=== PATIENT | female | born 1970 | race Caucasian/White ===

== ENCOUNTER → 2017-02-08 | Outpatient (CLI) | payer MEDICAID ==
[~2017-02-08] MED LIST: BACITRACIN15 G1 TP; COLACE-DPS100 MG PO; MILK OF MAGNESI10 ML PO; PERCOCET 5 DPS1 TAB PO; TYLENOL DPS325 MG PO; VALIUM-DPS5 MG PO
== END | disposition home or self-care (01) ==
LOC: PTH.S 08:35
DX: Z01.818 Encounter for other preprocedural examination (principal); M43.16 Spondylolisthesis, lumbar region; M48.06 Spinal stenosis, lumbar region; M54.17 Radiculopathy, lumbosacral region; F17.200 Nicotine dependence, unspecified, uncomplicated

== ENCOUNTER 2017-02-13 07:35 | Inpatient (IN) | payer MEDICAID ==
[~2017-02-13] VITALS: Ht 160 cm; Wt 88.8 kg
--- NOTE | ~2017-02-13 | DS ---
ADMIT: 02/13/2017 RM/LOC: [facility] MR#: [id number] [facility]#: [id number] [address] [facility] [address] [place], [place] [address] SOUMYA TOWNSEND [address] [place] [address] General Discharge Summary SEX: F AGE: 46 : 1970 ADMISSION DATE: 02/13/2017 DISCHARGE DATE: 02/16/2017 SERVICE: Neurosurgery. REASON FOR ADMISSION: 1. Low back pain. 2. Lumbar stenosis. 3. Lumbosacral radiculopathy. 4. Lumbar spondylolisthesis. PROCEDURE: Transforaminal lumbar interbody fusion at lumbar 5 through sacral 1. HOSPITAL COURSE: Ms. Townsend tolerated her procedure well. Postoperatively, she was taken to the Med/Surg floor for monitoring and care. Postop day #1, she was awake and alert. She was moving all extremities x4. Her vital signs were stable. Her incision was clean, dry, and intact. Her HEIDE drain was patent with serosanguineous drainage. Her On-Q was patent. She did work with Physical Therapy and Occupational Therapy and tolerated this quite well. Postop day #2, she was awake and alert. She was afebrile, and her vital signs were stable. She was moving all extremities x4. Her incision was clean, dry, and intact. Her On-Q was patent and was discontinued without difficulty. Her HEIDE drain was patent with serosanguineous drainage. It was discontinued without difficulty. She was complaining of back pain, but did state that her pain medications were helpful. She continued to work with Physical Therapy and Occupational Therapy. Postop day #3, she was awake and alert. She was afebrile, and her vital signs were stable. She was moving all extremities x4. Her incision was clean, dry, and intact and no hematoma or cerebrospinal fluid accumulation was noted. Her pain was well controlled. She was ambulating, urinating, and defecating per her norm and was requesting discharge home. DISCHARGE CONDITION: Good. MEDICATIONS: 1. Colace 100 mg p.o. b.i.d. 2. Milk of magnesia 10 mL p.o. q.a.m. p.r.n. 3. Bacitracin ointment to her incision q.p.m. x14 days. 4. Percocet 5/325 one to two p.o. q.4 hours p.r.n. 5. Tylenol 650 mg p.o. q.4 hours p.r.n. 6. Valium 5 mg one to two tablets p.o. q.8 hours p.r.n. DISCHARGE INSTRUCTIONS: Per Dr. Grimes, she can have a regular diet. She ADMIT: 02/13/2017 RM/LOC: [address] [facility] MR#: [id number] [address] [address] [place] [address] General Discharge Summary SEX: F AGE: 46 : 1970 may shower, she should not take any tub baths, she should pat her incision dry. She should not lift anything greater than 15 pounds. She should not take any NSAIDs. She should not drive until she is seen in clinic for followup. She will call with any questions or concerns including neurological worsening, signs and symptoms of infection, or any other issues. FOLLOWUP: She will follow up in clinic in 2 weeks with Alexia. DISPOSITION: She was discharged home. Total swqx-oh-zhoe time for the discharge planning and care coordination was 30 minutes. Alexia Walker APRN / Jose M Grimes MD / [place] JOB #: [id number] CC: Jose M Grimes MD, Attending Physician FAMILY PHYSICIAN, Family Physician
--- NOTE | 2017-02-15 07:38 | OR ---
ADMIT: 02/13/2017 RM/LOC: [address] [facility] MR#: [id number] [address] [facility] [address] [place], [place] [address] MATTHEW SOUMYA Sreekanth [address] [place] [address] Operative/Delivery Room Report SEX: F AGE: 46 : 1970 SURGERY DATE: 02/13/2017 SURGEON: Jose M Grimes MD PREOPERATIVE DIAGNOSIS: Spondylolisthesis lumbar 5, sacral 1 with radiculopathy bilaterally and severe stenosis. POSTOPERATIVE DIAGNOSIS: Spondylolisthesis lumbar 5, sacral 1 with radiculopathy bilaterally and severe stenosis. PROCEDURES: 1. Pineda-type wide laminectomy and facetectomy as advised necessary for decompression of thecal sac and nerve roots transiting at lumbar 5 sacral 1 level. 2. Confirmation of level with Dr. Jones with comparison to Noni Leatha MRI due to presence of residual disc that had been previously counted as S1, S2 level. 3. Intraoperative fluoroscopy with computed tomographic imaging with physician interpretation of film. 4. Bilateral pedicle screw placement lumbar 5, sacral 1. 5. Posterior nonsegmental instrumentation L5-S1 utilizing [employer] hardware. 6. [place] of autograft through same incision with morcellation reimplantation to the intervertebral space. 7. Placement of cadaveric allograft to the structural type in the intervertebral space. 8. Transforaminal lumbar interbody arthrodesis. 9. Posterolateral arthrodesis utilizing morcellated autograft as well as allograft. 10.Intraoperative neuromonitoring with no sign of breach rhythm on placement of pedicle screws. No sign of neurological damage during the case. DIRECTOR DIABETES: Alexia Walker APRN. DESCRIPTION OF PROCEDURE: After gaining informed consent, the patient was taken to the operative theater, placed under general endotracheal anesthesia in supine position, turned prone on a Daniel table with all pressure points purposely padded prior to performing the procedure. She was prepped and draped in usual sterile fashion. A time-out was utilized to ascertain the correct site and side of surgery as well as other pertinent patient historical information. Counts were obtained at the beginning and end of the case with no change betwixt the two. Antibiotics were given within 1 hour of incision. Fluoroscope was brought into the field and a needle was passed down over what I presumed to be the S1 pedicle and independently consulted Radiology for confirmation of level with comparison to a MRI. Once this was ascertained, ADMIT: 02/13/2017 RM/LOC: [address] [facility] MR#: [id number] [address] [address] SOUMYA CASTRO [address] [place] [address] Operative/Delivery Room Report SEX: F AGE: 46 : 1970 incision was fashioned and this was taken down to the thoracodorsal fascia. This was sharply incised. Offset was able to be palpated among the spinous processes at that level, and then subperiosteal dissection was utilized out over top of the facets and were planned placing self-retaining retractor. Once this was completed, pristine hemostasis was obtained and attention was turned to the laminectomy and fusion. Very widely utilizing the drill and various curettes, rongeurs, the lamina was resected morcellated as well as the spinous process taking this out over top of the facets resecting the medial aspect of the facet bilaterally and resecting out to the lateral aspect of the facet as wide as necessary for evaluation and full decompression of the thecal sac in the neural foramen. Once this was completed, pristine hemostasis was obtained and attention was turned to instrumentation. Utilizing landmarks and fluoroscopy and utilizing spot imaging, the posterior representation of the pedicle was decorticated, and then a pedicle finder was passed down through the pedicle into the vertebral body lumbar 5 sacral 1 bilaterally. After passing the pedicle finder, a sound was utilized to ensure bony anatomy at 360 degrees and at depth and then vancomycin powder coated screws were implanted. This was done bilaterally at L5 and on the left at S1 leaving the right S1 screw out to be able to access the disk space. Once that had been done, the right-sided S1 pedicle screw was placed. The screws were placed under distraction and attention was turned to diskectomy. Various curettes, rongeurs, and rasps were used to resect the disk at lumbar 5 sacral 1 after cutting the annular ligament. These scrapers were sized up to 11 mm rasping and curetting out the endplates preparing the area for arthrodesis and decompressing the anterior thecal sac from removal of the disk material. Once everything was removed as much as possible, the morcellated autograft was brought into the field and extensively packed into the intervertebral space. An appropriately-sized lordotic structural allograft was then brought into the field and tapped into place as well. There is no sign of complication. The nerve roots were intact. No sign of CSF leak. After this was done, the S1 pedicle screw on the right was placed. Everything was allowed to back into compressed state from the distraction and the pedicle screws were stimulated with no sign of breach rhythm. CT scan was obtained revealing the placement of the instrumentation and then the posterior instrumentation was connected and locked down to appropriate torque settings. Once all this was completed, the attention was turned to closure. Pristine hemostasis was obtained. A HEIDE drain was daylighted out. Stab incisions were fashioned in the paraspinous region. Then, the catheter was tunneled in and ADMIT: 02/13/2017 RM/LOC: [address] [facility] MR#: [id number] [facility] [address] [address] SOUMYA CASTRO [address] [place] [address] Operative/Delivery Room Report SEX: F AGE: 46 : 1970 loaded with 0.5% Marcaine, 5 mL on each side. The thoracodorsal fascia was closed with simple interrupted 0 Vicryl. Simple interrupted 2-0 Vicryl using the hypodermic tissue and subcuticular 3-0 Stratafix on the skin with Steri- Strips over that. Ms. Walker assisted with suction, retraction, and closure at the end of the case. COMPLICATIONS: None. ESTIMATED BLOOD LOSS: Charted. SPECIMEN: Disks. DISPOSITION: Extubated and taken to postanesthesia care unit. Jose M Grimes MD/ [place] JOB #: [id number] CC: Jose M Grimes, Attending Physician FAMILY PHYSICIAN, Family Physician
[2017-02-17] MEDS ORDERED: MILK OF MAGNESI10 ML PO (15:09)
[2017-02-17] MEDS ORDERED: COLACE-DPS100 MG PO (15:09)
[2017-02-17] MEDS ORDERED: BACITRACIN15 G1 TP (15:09)
[2017-02-17] MEDS ORDERED: TYLENOL DPS325 MG PO (15:10)
[2017-02-17] MEDS ORDERED: VALIUM-DPS5 MG PO (15:10)
[2017-02-17] MEDS ORDERED: PERCOCET 5 DPS1 TAB PO (15:10)
== END 2017-02-16 13:00 | disposition home or self-care (01) | DRG 460 ==
LOC: WOR 07:35 → 5MS 07:35
PROVIDERS: ADMIT Neurological Surgery
DX: M43.17 Spondylolisthesis, lumbosacral region (principal); F17.210 Nicotine dependence, cigarettes, uncomplicated